=== PATIENT | male | born 1970 | race Caucasian/White ===

== ENCOUNTER 2019-03-31 13:03 | Emergency (ER) | payer OTHER ==
[2019-03-31 13:21] VITALS: BP 135/81; PULSE 88; RESP 18; TEMP 98.3
--- NOTE | 2019-03-31 14:23 | XR ---
EXAMINATION TYPE: XR chest 2V DATE OF EXAM: 03/31/2019 COMPARISON: NONE HISTORY: Cough and congestion TECHNIQUE: FINDINGS: Heart is normal. Lungs are clear of infiltrate. There is no heart failure. There are no hil ar masses. 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 There is no pleural effusion. IMPRESSION: No cardiopulmonary disease.
--- NOTE | 2019-03-31 15:31 | ED ---
General Adult HPI - General Chief complaint: Upper Respiratory Infection Stated complaint: cold Time Seen by Provider: 03/31/19 13:24 Source: patient, RN notes reviewed Mode of arrival: ambulatory Limitations: no limitations - History of Present Illness Initial comments: 49-year-old male presents for cough congestion sore throat. This has been ongoing for the past 4 days. Patient has not had a fever at home but has had chills. Patient states his daughter recently was diagnosed with the flu last week. Denies shortness of breath. Denies chest pain. Denies history of asthma, smoking, or COPD. Denies any immunosuppressants.Patient has no other complaints at this time including shortness of breath, chest pain, abdominal pain, nausea or vomiting, headache, or visual changes. - Related Data Previous Rx's Medication Instructions Recorded Dicyclomine [Bentyl] 20 mg PO QID #10 tablet 04/19/14 Ondansetron Odt [Zofran ODT] 4 mg PO Q8HR PRN #10 tab 04/19/14 traMADol HCl [Ultram] 50 mg PO Q6H PRN #20 tab 04/19/14 Allergies Allergy/AdvReac Type Severity Reaction Status Date / Time Penicillins Allergy Unknown Verified 03/31/19 13:21 Childhood Review of Systems ROS Statement: Those systems with pertinent positive or pertinent negative responses have been documented in the HPI. ROS Other: All systems not noted in ROS Statement are negative. Past Medical History Past Medical History: No Reported History History of Any Multi-Drug Resistant Organisms: None Reported Past Surgical History: No Surgical Hx Reported Additional Past Surgical History / Comment(s): abdominal surgery Past Psychological History: No Psychological Hx Reported Smoking Status: Never smoker Past Alcohol Use History: Occasional Past Drug Use History: None Reported General Exam Limitations: no limitations General appearance: alert, in no apparent distress Head exam: Present: atraumatic, normocephalic, normal inspection Eye exam: Present: normal appearance, PERRL, EOMI. Absent: scleral icterus, conjunctival injection, periorbital swelling ENT exam: Present: normal exam, normal oropharynx, mucous membranes moist, TM's normal bilaterally, normal external ear exam Neck exam: Present: normal inspection, full ROM. Absent: tenderness, meningismus, lymphadenopathy Respiratory exam: Present: normal lung sounds bilaterally. Absent: respiratory distress, wheezes, rales, rhonchi, stridor Cardiovascular Exam: Present: regular rate, normal rhythm, normal heart sounds. Absent: systolic murmur, diastolic murmur, rubs, gallop, clicks GI/Abdominal exam: Present: soft, normal bowel sounds. Absent: distended, tenderness, guarding, rebound, rigid Neurological exam: Present: alert Course Vital Signs 03/31/19 13:19 Temperature 98.3 F Pulse Rate 88 Respiratory 18 Rate Blood Pressure 135/81 O2 Sat by Pulse 99 Oximetry Medical Decision Making - Medical Decision Making Vitals are stable. Patient is well-appearing. Strep is negative. Chest x-ray shows no heart or pulmonary disease. Influenza B is positive. Patient has had symptoms for over 4 days and is therefore out of the Tamiflu window. Hemophilia is not recommended. Patient is agreeable to this. Patient will follow up with primary care. He will return if he has any worsening symptoms. Discussed [id number] cold and flu medications. - Lab Data Lab Results 03/31/19 Range/Units 14:04 Influenza Type A RNA Not Detected (Not Detectd) Influenza Type B (PCR) Detected H (Not Detectd) Group A Strep Rapid Negative (Negative) Disposition Clinical Impression: Influenza B Disposition: HOME SELF-CARE Condition: Good Instructions (If sedation given, give patient instructions): Influenza (ED) Additional Instructions: Please drink plenty of fluids. Motrin and Tylenol for fever. You may also take [id number] flu medications. However make sure you are not taking too much Motrin or Tylenol with these. Follow-up with primary care in 1-2 days. Return to the emergency department if you have any worsening symptoms. Is patient prescribed a controlled substance at d/c from ED?: No Referrals: Jorge Aranda MD [STAFF PHYSICIAN] - 1-2 days Time of Disposition: 15:30
== END 2019-03-31 16:07 | disposition home or self-care (01) ==
LOC: EC 13:03
DX: J10.1 Influenza due to other identified influenza virus with other respiratory manifestations (principal); Z88.0 Allergy status to penicillin
CPT/HCPCS: 71046; 87081; 87430; 87502; 99283